=== PATIENT | male | born 2000 | race Caucasian/White ===

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

== ENCOUNTER 2023-10-13 16:53 | Emergency (ER) | payer OTHER, SELFPAY ==
--- NOTE | ~2023-10-13 | XR_ITS ---
EXAMINATION: XR chest 2V DATE: 10/13/2023 20:37 INDICATION: 2 weeks of cough TECHNIQUE: PA and lateral views of the chest were obtained. COMPARISON: Chest radiograph dated 05/28/2012 FINDINGS: The lungs are clear with no focal airspace opacities, pulmonary edema, pleural effusion or pneumothor ax. The cardiomediastinal silhouette is normal. Visualized bones and soft tissues are unremarkable. IMPRESSION: 1. Normal chest radiograph. Reviewed, dictated and finalized at location A. [employer] IMPRESSION: 1. Normal chest radiograph.
[2023-10-13 17:43] VITALS: BP 160/83; PULSE 99; RESP 16; TEMP 36.6; O2SAT 99
[2023-10-13 18:42] LABS: Influenza A QL RT-PCR Positive (Negative); Influenza B QL RT-PCR Negative (Negative); RSV RNA, RT-PCR Negative (Negative); SARS-CoV-2 RNA PCR Negative (Negative)
[2023-10-13 19:53] VITALS: BP 137/91; PULSE 98; RESP 18; TEMP 37.1; O2SAT 99
--- NOTE | 2023-10-13 20:05 | ED.URI ---
HPI - URI/Sore Throat General Chief Complaint: Upper Respiratory Infection Stated Complaint: UPPER RESP INFECTION Time Seen by Provider: 10/13/23 20:04 History of Present Illness HPI Narrative: Patient is a healthy 23 year old male with no PHM here with a cough and chest pain. He notes that he first started feeling sick around . He presented to an urgent care for the first time around then where they did a viral swab which was negative and started him on amoxicillin. This did not help his symptoms so he presented a second time last week and had an xray which showed bronchitis and he was started on steroids, an inhaler, cough medicine and azithromycin. He felt as though he was somewhat improving until this Tuesday when he started feeling sick again and went back to the urgent care for the third time. At the urgent care they swabbed him for the third time, which remained negative, and then started him on doxycycline. He is in the middle of a 10 day doxycycline course. He worsened today, noting some chest pain, midsternal, in addition to the cough, body aches and congestion that he has been experiencing since . He read on the paperwork from his latest urgent care visit that he should come to the ER if he still does not get better which is why he is here today. No cardiac history. 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 HEAD: Normocephalic, atraumatic. EYES: PERRLA and EOMI. ENT: Nares clear. Mucous membranes moist. NECK: Supple. CHEST: Faint bilateral wheeze. No respiratory distress. HEART: Regular rate and rhythm. Normal peripheral pulses. ABDOMEN: Soft, nontender, nondistended. EXTREMITIES: Normal range of motion. No edema. SKIN: Warm, dry, no rash. NEURO: No focal deficits. Alert and oriented x3. PSYCH: Normal mood and affect. Course Course Emergency Course: Chart review performed. Patient here with URI symptoms for a few weeks. Reportedly had negative swab on 10/10/23. Vitals grossly normal. O2 sat normal. He appears to be influenza A positive. One prior visit in our system for finger laceration. Patient seen evaluated, nontoxic appearing. He appears to be aggressively treated from an urgent care for what I suspect is been a viral process throughout this entire time. Discussed with him that when he decompensated again on Tuesday this was likely the beginning of his influenza course. He has had symptoms for more than 72 hours, has no medical problems, would not be a candidate for Tamiflu. Will do chest x-ray, EKG and anticipate discharge. The results of pertinent diagnostic studies and exam findings were discussed. The patient?s provisional diagnosis and plan of care were discussed with the patient and present family. The patient and/or present family expressed understanding of the diagnosis and plan. The nurse was instructed to provide written instructions and appropriate follow-up information. The patient understands their need and respo
--- NOTE | 2023-10-13 20:26 | ECG_ITS ---
Measurements Intervals [place] Rate: 91 P: 25 TX: 124 QRS: 42 QRSD: 86 T: 30 QT: 335 QTc: 414 Interpretive Statements SINUS RHYTHM BASELINE WANDER- V3 NORMAL ECG NO PREVIOUS ECG AVAILABLE FOR COMPARISON Electronically Signed On 10-14-2023 6:28:53 [employer] by Devon Verde D.O.
== END 2023-10-13 21:08 | disposition home or self-care (01) ==
PROVIDERS: Emergency Medicine; Emergency Provider Student in an Organized Health Care Education/Training Program; PCP Nurse Practitioner Family
DX: J10.1 Influenza due to other identified influenza virus with other respiratory manifestations (principal); R05.2 Subacute cough; Z77.22 Contact with and (suspected) exposure to environmental tobacco smoke (acute) (chronic)
CPT/HCPCS: 71046; 87637; 93005; 99283

== ENCOUNTER 2024-04-03 14:15 | Emergency (ER) | payer OTHER, SELFPAY ==
[2024-04-03 14:23] VITALS: BP 136/77; PULSE 100; RESP 16; TEMP 37.8; O2SAT 100
--- NOTE | 2024-04-03 15:02 | ED.BACK ---
HPI - Back Pain/Injury General Chief Complaint: Back Pain/Injury Stated Complaint: Back/Leg Pain;Exhaustion Time Seen by Provider: 04/03/24 15:02 Source: patient, RN notes reviewed and old records reviewed Mode of arrival: ambulatory Limitations: no limitations History of Present Illness HPI Narrative: 23-year-old male to [facility] with complaint of lower back discomfort radiating into bilateral buttocks and lower extremities since yesterday. patient denies any known injury, urinary changes, bowel changes, saddle anesthesia, weakness, numbness, tingling, allergies, pertinent medical history. Patient states that he has been working with a representative personal service weekly and doing exercises such as squats, lifts, planks. Patient states that this may be a contributing factor to his pain. 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 Patient requesting work note. Patient in no acute distress. Related Data Home Medications Medication Instructions Recorded Confirmed No Home Medications 04/03/24 04/03/24 Allergies Allergy/AdvReac Type Severity Reaction Status Date / Time No Known Allergies Allergy Unverified 04/03/24 14:20 Review of Systems Review of Systems: All systems reviewed & are unremarkable except as noted in HPI and below Constitutional: Constitutional: Reports no additional constitutional complaints Eyes: Eyes: Reports no additional eye complaints ENT: Reports system reviewed and no additional complaints, except as documented Cardiovascular: Cardiovascular: Reports no additional cardiovascular complaints, Denies chest pain and Denies dyspnea Respiratory: Respiratory: Reports no additional respiratory complaints, Denies cough and Denies dyspnea Musculoskeletal: Musculoskeletal: Reports as per HPI, Reports back pain ( Lumbar) and Reports radiating pain into limb ( bilateral buttocks) Neurologic: Reports system reviewed and no additional complaints, except as documented Psychiatric: Psychiatric: Reports no additional psychiatric complaints [facility] Past Medical History Medical History 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 There is no relevant family history pertinent to the patient complaint. Exam Const: General: cooperative, healthy appearing, comfortable, no acute distress, alert and well nourished Nutritional Appearance: well nourished Orientation/consciousness: patient oriented x3 Limitations: no limitations HENMT: Head: normal to inspection Ears: external ears normal Face/Nose/Sinus: Normal external nose present, Normal nares present, normal facial exam, No erythema and No edema Face and sinus: normal facial exam, no erythema and no edema Mouth: Yes Normal oral and palatal mucosa present Eyes: General: appearance normal, both eyes and all related structures Neck: Neck: normal visual inspection, full ROM and no meningeal signs Lymphatic: no lymphadenopathy noted and no lymphedema noted Chest: Chest palpation & inspection: normal inspection of the chest Resp: Effort & Inspection: normal respiratory effort and able to speak in complete sentences Auscultation:
[2024-04-03 15:10] LABS: EDUAAPPEAR Clear; EDUABILI Negative; EDUABLOOD Negative; EDUACOLOR1 Amber; EDUAGLUCOSE Negative; EDUAKETONE Negative; EDUALEUKO Negative; EDUANITRATE Negative; EDUAPROTEIN Negative; EDUAUROBILI 0.2
--- NOTE | 2024-04-03 16:06 | PC.NURSE ---
1455- instructed pt to give urine specimen at present due to back pain and low grade temp.
== END 2024-04-03 15:18 | disposition home or self-care (01) ==
PROVIDERS: Emergency Provider Nurse Practitioner Family
DX: S39.012A Strain of muscle, fascia and tendon of lower back, initial encounter (principal); X58.XXXA Exposure to other specified factors, initial encounter
CPT/HCPCS: 81003; 99212; G0463